=== PATIENT | male | born 1990 | race Caucasian/White ===

== ENCOUNTER 2018-05-25 22:31 | Emergency (ER) | payer OTHER ==
[~2018-05-25] VITALS: Ht 177.8 cm; Wt 87.4 kg
[~2018-05-25 22:31] MED LIST: AUGMENTIN875 MG PO; FIORICET 50-301 EACH PO; MOTRIN800 MG PO; NOHOMEMEDS; PROMETHAZINE HC25 M1 PO; ULTRAM50 MG PO
[2018-05-25 23:10] LABS: HEMATOCRIT 42.2 % (38.0-50.0); HEMOGLOBIN 14.7 G/DL (12.5-16.6); MCH 31.6 PG (29.0-34.0); MCHC 34.8 G/DL (30.0-36.0); MCV 90.8 FL (86-99); PLATELET COUNT 180 K/uL (156-360); RBC DIS.WIDTH-CV 11.3 % (11.8-14.6); RBC DIS.WIDTH-SD 37.8 % (39-53); RED BLOOD COUNT 4.65 M/uL (4.00-5.50); WHITE BLOOD COUNT 11.9 K/uL (4.1-10.2)
[2018-05-25 23:23] LABS: CHLORIDE 101 mEq/L (99-109); POTASSIUM 3.9 mEq/L (3.7-5.4); SODIUM 135 mEq/L (136-147)
[2018-05-25 23:25] LABS: GLUCOSE 114 mg/dL (70-99)
[2018-05-25 23:29] LABS: CREATININE 1.3 mg/dL (0.6-1.3); GFR ESTIMATE (CALCULATED) > 59 mL/min/ (58.99-99999)
[2018-05-25 23:30] LABS: UREA NITROGEN (BUN) 11 mg/dL (9-23)
[2018-05-26 00:08] LABS: TROP-I INTERPRETATION NEGATIVE; TROPONIN-I 0.03 ng/mL (0.0-0.30)
[2018-05-26 02:30] VITALS: BP 125/70
== END 2018-05-26 02:31 | disposition home or self-care (01) ==
LOC: EME 22:31
PROVIDERS: Emergency Medicine
DX: B34.9 Viral infection, unspecified (principal); E86.0 Dehydration; R94.31 Abnormal electrocardiogram [ECG] [EKG]
CPT/HCPCS: 71046; 80048; 81003; 83880; 84484; 85027; 87502; 87651 90; 93005; 99281; 99285; J0780; J1200; J7030

== ENCOUNTER 2018-05-27 17:02 | Emergency (ER) | payer OTHER ==
[~2018-05-27] VITALS: Ht 177.8 cm; Wt 86.4 kg
[2018-05-27 18:37] LABS: BASOPHIL (%) 0.3 % (0-1); EOSINOPHIL (%) 0.2 % (0-5); HEMATOCRIT 40.7 % (38.0-50.0); HEMOGLOBIN 14.4 G/DL (12.5-16.6); IMMATURE GRANULOCYTE (%) 0.3 % (0.0-0.7); LYMPHOCYTE (%) 11.9 % (15-42); LYMPHOCYTE COUNT 1.4 K/uL (1.0-2.8); MCH 31.9 PG (29.0-34.0); MCHC 35.4 G/DL (30.0-36.0); MCV 90.2 FL (86-99); MONOCYTE (%) 14.5 % (3-12); MONOCYTE COUNT 1.7 K/uL (0-0.8); NEUTROPHIL (%) 72.8 % (45-76); NEUTROPHIL COUNT 8.5 K/uL (1.8-6.4); PLATELET COUNT 206 K/uL (156-360); RBC DIS.WIDTH-CV 11.5 % (11.8-14.6); RBC DIS.WIDTH-SD 37.9 % (39-53); RED BLOOD COUNT 4.51 M/uL (4.00-5.50); WHITE BLOOD COUNT 11.7 K/uL (4.1-10.2)
[2018-05-27 18:46] LABS: ALBUMIN 4.2 g/dL (3.2-4.8); CHLORIDE 102 mEq/L (99-109); SODIUM 135 mEq/L (136-147)
[2018-05-27 18:49] LABS: GLUCOSE 103 mg/dL (70-99); TOTAL PROTEIN 7.6 g/dL (6.4-8.3)
[2018-05-27 18:51] LABS: TOTAL BILIRUBIN 1.1 mg/dL (0.0-1.0)
[2018-05-27 18:52] LABS: ALKALINE PHOSPHATASE 47 IU/L (3-129); CREATININE 1.2 mg/dL (0.6-1.3); GFR ESTIMATE (CALCULATED) > 59 mL/min/ (58.99-99999)
[2018-05-27 18:53] LABS: UREA NITROGEN (BUN) 11 mg/dL (9-23)
[2018-05-27 18:54] LABS: AST (GOT) 26 IU/L (2-34)
[2018-05-27 18:55] LABS: ALT (GPT) 29 IU/L (3-49)
[2018-05-27 19:24] LABS: MONOSPOT (MONONUCLEOSIS SEROL) NEGATIVE
[2018-05-27 19:57] LABS: APPEARANCE CLEAR/COLORLESS; CSF TUBE NUMBER TUBE #4
[2018-05-27 19:58] LABS: RED CELL COUNT 0 /MM^3 (0-1); WHITE CELL COUNT 0 /MM^3 (0-5)
[2018-05-27 20:08] LABS: CSF PROTEIN 35 mg/dL (15-45); GLUCOSE, CSF 67 mg/dL (40-80)
[2018-05-27 20:41] LABS: APPEARANCE CLEAR ((CLEAR)); BILIRUBIN NEGATIVE; BLOOD SMALL; COLOR YELLOW ((YELLOW)); GLUCOSE (STRIP) NEGATIVE; KETONES NEGATIVE; LEUKOCYTES NEGATIVE; NITRITE NEGATIVE; PROTEIN (STRIP) 30; SPECIFIC GRAVITY 1.009 (1.000-1.030); UROBILINOGEN 0.2 MG/DL (0.2-1.0)
[2018-05-27 20:49] LABS: BACTERIA NONE SEEN /HPF; EPITHELIAL CELLS NONE SEEN /HPF; MUCUS TRACE /LPF; UCUL ADDED? NO; WHITE BLOOD CELLS 0-5 /HPF (0-5)
[2018-05-27] MEDS ORDERED: AUGMENTIN875 MG PO (22:51)
[2018-05-27 23:06] VITALS: BP 136/73
== END 2018-05-27 23:09 | disposition home or self-care (01) ==
LOC: EME 17:02
PROVIDERS: Emergency Medicine
DX: J32.9 Chronic sinusitis, unspecified (principal); R50.9 Fever, unspecified; J34.1 Cyst and mucocele of nose and nasal sinus
CPT/HCPCS: 70450; 80053; 81003; 82945; 83605; 84157; 85025; 86308; 86664; 86665; 87040; 87070; 87205; 87502; 87651 90; 89051; 99281; 99285; J1885; J7030